=== PATIENT | male | born 1960 | race Caucasian/White ===

== ENCOUNTER 2017-02-14 12:23 | Inpatient (IN) | payer BC ==
--- NOTE | ~2017-02-14 | OP ---
Record Of Operation [facility] [address] [place]. [address] NAME: NIMO SANCHEZ JR : 60 STATUS : DIS IN PAT#: [id number] AGE: 56 ADM/REG DATE : 02/14/17 MR#: [id number] REPORT SERV DATE: 03/02/17 DICTATED BY: LO PARDO III DATE: 03/02/17 REPORT STATUS : Draft TRANSCRIBED BY: MODL DATE: 03/02/17 DATE OF PROCEDURE: 02/14/2017 PROCEDURAL PIPE FITTER SUPERVISOR: Lo Pardo M.D., FORMERLY [facility], [facility]. INDICATIONS: Mr. Nimo Sanchez Jr., is a 56-year-old white male with three other risk factors for coronary atherosclerotic disease (i.e., obesity, hyperlipoproteinemia, hypertension) and no prior cardiac history; who presented with an acute inferior ST segment elevation myocardial infarction-acute coronary syndrome, incomplete left bundle-branch block. The patient's 12-lead electrocardiogram was positive by Sgarbossa criteria. The patient was admitted for emergent cardiac catheterization and consideration of revascularization. Options, potential risks and benefits of the procedure were discussed with the patient. The patient accepted these risks and wished to proceed. PROCEDURE DESCRIPTION: 1. Left heart catheterization. 2. Left ventriculogram. 3. Left and right coronary angiograms. 4. Percutaneous transluminal coronary angioplasty with implantation of a 3.0 mm x 16 mm [employer] Synergy EES in the distal portion of the right coronary artery. 5. Limited right iliofemoral angiogram. CONTRAST: Iopamidol 170 mL. MEDICATIONS: 1. Midazolam 2 mg intravenously, in divided doses. 2. Sublimaze 100 mcg intravenously, in divided doses. 3. Heparin 1000 units intravenously (for a total of 4000 units intravenously). 4. Bivalirudin with a loading dose of 0.75 mg/kg intravenously, followed by a standard intravenous infusion at 1.75 mg/kg per hour. 5. Nitroglycerin 200 mcg intracoronary. 6. Ticagrelor 180 mg orally. EQUIPMENT: 1. 4-[place] Cook micropuncture with stiffened cannula (RFA). 2. 0.035-inch PTFE coated, 150 cm, 3 mm J Measyald guidewire. 3. 6-[place], 10 cm Terumo pinnacle sheath. 4. 6-[place], 100 cm #4 curve left coronary artery Nicole catheter. 5. 6-[place], 100 cm Bautista 3D right coronary artery catheter. 6. 6-[place] Hockey Stick Cordis Orma Brite-Tip guiding catheter. 7. 0.014-inch Hi-Torque floppy, 190 cm, extra-support Palacio whisper steerable guidewire. 8. 2.5 mm x 15 mm [employer] Emerge MR balloon dilatation catheter (14 atmospheres for a duration of 30 seconds). 9. 3.0 mm x 16 mm [employer] Synergy MR stent deployment system (18 atmospheres for a duration of 60 seconds). 10.6-[place], 110 cm pigtail-145 catheter (38 mL at 13 mL per second). Record Of Operation [address] [place]. [address] NAME: NIMO SANCHEZ JR : 60 STATUS : DIS IN PAT#: [id number] AGE: 56 ADM/REG DATE : 02/14/17 MR#: [id number] REPORT SERV DATE: 03/02/17 DICTATED BY: LO PARDO III DATE: 03/02/17 REPORT STATUS : Draft TRANSCRIBED BY: MARY CARMEN DATE: 03/02/17 11.6-[place] Palacio Perclose ProGlide vascular closure device. COMPLICATIONS: None. RADIATION DOSE: 887 mGy. ESTIMATED BLOOD LOSS: 20 mL. HEMODYNAMICS DATA: Prior to left ventriculography, the central aortic pressure was 130/87 mmHg. The left ventricular pressure was 135/10 mmHg (post a-wave). There was no significant mggu-za-nhqz aortic valve gradient on pullback from the left ventricle to the central aorta. ANGIOGRAPHIC DATA: Single-plane 30-DUBON left ventriculography demonstrated that the left ventricle was moderately enlarged. There was anterobasal hypokinesis, anterolateral hypokinesis, apical hypokinesis, diaphragmatic profound hypokinesis, and posterobasal profound hypokinesis. Global left ventricular systolic function was severely reduced. There was no mitral regurgitation. The left main coronary artery was a large caliber, long, irregular vessel. There was an eccentric 50% stenosis involving the ostium of the left main coronary artery. There was a 25% stenosis involving the distal portion of the left main coronary artery. The left main coronary artery bifurcated into a medium caliber left anterior descending and a small-to- medium caliber, nondominant left circumflex coronary arteries. The left anterior descending coronary artery gave rise to three major septal perforators, large caliber first diagonal branch, right ventricular branch, and a small caliber second diagonal branch, before supplying the left ventricular apex. There were irregularities of the mid-portion of the left anterior descending coronary artery. The left anterior descending coronary artery was free of angiographically significant obstructive epicardial coronary artery disease. The left circumflex coronary artery was a bnggk-wz-rerfov caliber, nondominant vessel. The left circumflex coronary artery gave rise to one medium caliber obtuse marginal branch and no posterolateral segment branches. The left circumflex coronary artery was diffusely irregular. The left circumflex coronary artery was free of angiographically significant obstructive epicardial coronary artery disease. The right coronary artery was a tuvocm-nv-oqnzk caliber, dominant vessel. The right coronary artery gave rise to a conus branch, sinoatrial branch, plfol-dh-usqbmf caliber first right ventricular branch, medium caliber second right ventricular branch, small caliber acute marginal branch, large caliber posterior descending coronary artery, small caliber first posterior left ventricular branch, medium caliber second posterior left ventricular branch, and a small caliber third posterior left ventricular branch. The right coronary artery was diffusely irregular. There was a radiolucent, irregular, eccentric subtotal occlusion of the distal portion of the right coronary artery just proximal to the origin of the posterior descending coronary artery. There was SHARAD grade 2 perfusion of the Record Of Operation [address] [address] NAME: NIMO SANCHEZ JR : 60 STATUS : DIS IN PAT#: [id number] AGE: 56 ADM/REG DATE : 02/14/17 MR#: [id number] REPORT SERV DATE: 03/02/17 DICTATED BY: LO PARDO III DATE: 03/02/17 REPORT STATUS : Draft TRANSCRIBED BY: MODL DATE: 03/02/17 distal vessel. Following balloon dilatation and implantation of a 3.0 mm x 16 mm [employer] Synergy EES in the distal portion of the right coronary artery, selective injections of the right coronary artery demonstrated a reduction in the stenosis to approximately 0%. There was no intraluminal radiolucency or irregularity. There was SHARAD grade 3 perfusion of the distal vessel. Limited right iliofemoral angiography demonstrated irregularities of the distal external iliac and common femoral arteries. The sheath insertion site was located in the common femoral artery. PATIENT DISPOSITION: Coronary Care Unit. CONCLUSIONS: 1. Anterobasal hypokinesis, anterolateral hypokinesis, apical hypokinesis, diaphragmatic profound hypokinesis, and posterobasal profound hypokinesis, with a severe reduction in global left ventricular systolic function. 2. Normal left ventricular end-diastolic pressure. 3. Angiographically significant left main and one-vessel coronary artery disease, involving the distal portion of the right coronary artery. 4. Right dominant coronary anatomy. 5. Successful percutaneous transluminal coronary angioplasty with implantation of a 3.0 mm x 16 mm [employer] Synergy EES in the distal portion of the right coronary artery, with reduction in the stenosis to approximately 0% and SHARAD grade 3 perfusion of the distal vessel. RECOMMENDATION: Aspirin for life, ticagrelor for at least one year, carvedilol, SOHEILA inhibitor, high-intensity atorvastatin, echocardiogram to document left ventricular ejection fraction, consider aldosterone antagonists, consider LifeVest and cardiac rehabilitation program. LH/MODL Lo Pardo III, M.D., [place], [facility] / [id number] CC: Lo Pardo III, M.D., [facility] Josiah Wright M.D.
--- NOTE | ~2017-02-14 | DS ---
Discharge Summary [facility] [address] [place]. [address] NAME: NIMO SANCHEZ JR : 60 STATUS : DIS IN PAT#: [id number] AGE: 56 ADM/REG DATE : 02/14/17 MR#: [id number] REPORT SERV DATE: 02/27/17 DICTATED BY: LO PARDO III DATE: 02/26/17 REPORT STATUS : Draft TRANSCRIBED BY: MARY CARMEN DATE: 02/26/17 Data Collection from hospitalization DISCHARGE DIAGNOSIS(ES): 1. Acute inferior ST-elevation myocardial infarction - acute coronary syndrome. 2. Coronary artery disease. 3. Hypertension. 4. Hyperlipidemia. 5. Type 2 diabetes. 6. Obesity. 7. Obstructive sleep apnea. 8. Chronic anxiety. CONSULTATIONS: None. PROCEDURES PERFORMED: Cardiac catheterization dated 02/14/2017. MEDICATIONS: Aspirin 81 mg at bedtime; Lipitor as instructed; Coreg 6.25 mg twice a day; Nexium 20 mg daily as needed; Centrum one tablet every morning; Aleve 440 mg daily as needed; niacin TR 2000 mg at bedtime; nitroglycerin 0.4 mg sublingually as needed; Altace as instructed; Appling nasal spray one spray nasally every morning; Aldactone 25 mg daily; Brilinta 90 mg twice a day; and ketoconazole one application topically on Wednesdays and Saturdays. CONDITION AT DISCHARGE: Stable. DISPOSITION: The patient was discharged home on a low-sodium, low-cholesterol diet with activities as instructed. He would follow up with ca, 03/18/2017. HOSPITAL COURSE: This is a 56-year-old man from [place], [place], who presented to the [facility] for evaluation and treatment of an acute inferior ST-segment elevation myocardial infarction - acute coronary syndrome. He had been in his usual state of health until approximately one week prior to this admission. At that time, he developed the onset of dull substernal chest pain radiating to the upper extremities. The chest pains have lasted up to two hours in duration. The patient's chest pains have been accompanied by diaphoresis and nausea. He denied dyspnea or vomiting. The chest pains were precipitated by exertion and oral intake. The pain was partially relieved by antacids. He denied trying sublingual nitroglycerin and a heating pad. He was subsequently seen in the [facility] Emergency Room. A 12-lead electrocardiogram demonstrated sinus rhythm at a rate of 76 beats per minute, complete left bundle-branch block, and evidence of inferior ST-segment elevation myocardial infarction. The patient was treated with aspirin, intravenous heparin, and nitrates. It was felt that he would need to undergo a cardiac catheterization and consideration of revascularization. He was admitted to the hospital at this time for further evaluation and treatment. Upon admission, he was taken to the cardiac environmental laboratory technician where he underwent the above-mentioned procedure. The following day, he had no chest pain, palpitations, or dyspnea. He was in a sinus rhythm with occasional PVCs. Hemoglobin A1c was going to be checked. It was felt Discharge Summary [id number] [place]. [address] NAME: NIMO SANCHEZ JR : 60 STATUS : DIS IN PAT#: [id number] AGE: 56 ADM/REG DATE : 02/14/17 MR#: [id number] REPORT SERV DATE: 02/27/17 DICTATED BY: LO PARDO III DATE: 02/26/17 REPORT STATUS : Draft TRANSCRIBED BY: MARY CARMEN DATE: 02/26/17 that he would benefit from the cardiac rehab program. He was transferred to telemetry. On 02/16/2017, he had no dyspnea, palpitations, or chest pain. He remained in a sinus rhythm. Discharge planning was performed. A LifeVest was being considered. Discharge planning continued. On 02/17/2017, he was alert and cooperative. He had good pain control. Discharge instructions were given. Due to his improved and stable condition, he was discharged home with the above-stated instructions. Information collected by: Jennifer Waite I submit the above information as my discharge summary. JASPER/MARY CARMEN Lo Pardo III, M.D., [place], [facility] / [id number] CC: Lo Pardo III, M.D., [place] [facility] Josiah Wright M.D.
--- NOTE | ~2017-02-14 | HP ---
History And Physical [address] [place]. [address] NAME: NIMO SANCHEZ JR : 60 STATUS : ADM Lucy PAT#: [id number] AGE: 56 ADM/REG DATE : 02/14/17 MR#: [id number] REPORT SERV DATE: 02/15/17 DICTATED BY: LO PARDO III DATE: 02/15/17 REPORT STATUS : Draft TRANSCRIBED BY: MARY CARMEN DATE: 02/15/17 DATE OF ADMISSION: 02/14/2017 HISTORY OF PRESENT ILLNESS: Mr. Nimo Sanchez Jr is a 56-year-old white male from [place], [place], admitted to [facility] for evaluation and treatment of an acute inferior ST-segment elevation myocardial infarction-acute coronary syndrome. The patient had been in his usual state of health until approximately one week prior to this admission. At that time, the patient noted the onset of dull substernal chest pains radiating to his upper extremities. The patient's chest pains have lasted up to two hours in duration. The patient's chest pains have been accompanied by diaphoresis and nausea. The patient denied any associated dyspnea or vomiting. The patient's chest pains were precipitated by exertion and oral intake. The patient denied relation to emotional upset, respiration and positional change. The patient's chest pains were partially relieved by antacids. The patient denied trying sublingual nitroglycerin and a heating pad. The patient has no history of migraine headaches or symptoms suggestive of Raynaud's phenomenon. The patient denied chest pain at rest. The patient was awoken with chest pain on one occasion. Over the last week, the patient has noted an increase in the frequency, intensity, and duration of his chest pains. The patient did well until the day of admission. At that time, the patient had the onset of sustained dull substernal chest pains radiating to the upper extremities. The patient was subsequently seen in the [facility] Emergency Room. A 12-lead electrocardiogram demonstrated sinus rhythm at a rate of 76 beats per minute, complete left bundle-branch block, and evidence of an inferior ST-segment elevation myocardial infarction. The patient was treated with aspirin, intravenous heparin, and nitrates. The patient was referred for emergent cardiac catheterization and consideration of revascularization. The patient complained of dyspnea on exertion, but could not quantitate his functional limitation. The patient denied pedal edema, sacral edema, palpitations, syncope, hip claudication, and lower extremity claudication. The patient has no history of rheumatic fever, cardiac murmur. The patient's documented coronary artery disease risk factors include obesity, hyperlipoproteinemia, and hypertension. PAST MEDICAL HISTORY: 1. Obesity. 2. Hyperlipoproteinemia. 3. Hypertension. 4. Obstructive sleep apnea, CPAP compliant. 5. Chronic anxiety. 6. Nephrolithiasis. OPERATIVE PROCEDURES: Status post repair of an esophageal stricture at six months of age. ALLERGIES: CODEINE. MEDICATIONS: 1. Aspirin 81 mg p.o. at bedtime. 2. Anna-Orondo one to two tablets p.o. b.i.d., p.r.n. History And Physical [address] [address] NAME: NIMO SANCHEZ JR : 60 STATUS : ADM Lucy PAT#: [id number] AGE: 56 ADM/REG DATE : 02/14/17 MR#: [id number] REPORT SERV DATE: 02/15/17 DICTATED BY: LO PARDO III DATE: 02/15/17 REPORT STATUS : Draft TRANSCRIBED BY: MARY CARMEN DATE: 02/15/17 3. Esomeprazole 20 mg p.o. p.r.n. 4. Irbesartan/hydrochlorothiazide 150/6.25 mg p.o. q.a.m. 5. Multivitamin with minerals one p.o. daily. 6. Naproxen 440 mg p.o. p.r.n. 7. Nicotinic acid SR 2000 mg p.o. at bedtime. 8. Simvastatin 40 mg p.o. at bedtime. 9. Geary nasal spray one each nostril q.a.m. 10.Testosterone 1.62% two sprays daily. 11.Ketoconazole shampoo two times per week. FAMILY HISTORY: Positive for myocardial infarction, hypertension, diabetes mellitus, and lung cancer. Negative for stroke, seizures, kidney disease, liver disease, anemia, arthritis, and mental illness. SOCIAL HISTORY: The patient drinks an occasional beer or mixed drink. The patient discontinued chewing tobacco approximately three years prior to this admission. PHYSICAL EXAMINATION: GENERAL: Physical examination demonstrated an alert, obese, older white male, in no acute distress. VITAL SIGNS: Demonstrated a temperature of 98.2 orally, respiratory rate of 13 breaths per minute, and a blood pressure of 105/71 mmHg with a heart rate of 58 beats per minute. SKIN: Warm and dry. There was a well-healed midline supraumbilical abdominal surgical scar. NECK: Supple and nontender. There was full range of motion without appreciable lymphadenopathy or thyromegaly. There was no jugular venous distention at 90 degrees. There were no carotid bruits. BACK: Examination of the back demonstrated no spinal or costovertebral angle tenderness. CHEST: Examination of the chest demonstrated that it was clear to auscultation. There were no crackles, rhonchi, wheezes, or pleural rubs. There was symmetrical expansion of the chest. There was no use of accessory muscles on respiration. CARDIAC: Cardiac examination demonstrated a nonpalpable apical impulse. There was a regular rhythm and rate without murmur, rub, gallop, or mid systolic click. There were no thrills or heaves. ABDOMEN: Examination of the abdomen demonstrated that it was obese, soft, and protuberant. There was no appreciable hepatosplenomegaly or masses. Bowel sounds were intact. There were no abdominal or femoral bruits. BACK: Examination of the extremities demonstrated that they were symmetrical. There was decreased range of motion. There was no cyanosis, clubbing, or edema. Pulses were 2+ and equal at the radial and posterior tibial arteries. The femoral pulses were 1+ and equal. Right dorsalis pedis pulse was trace to nonpalpable and the left dorsalis pedis pulse was 2+. LABORATORY DATA: Serum laboratory studies demonstrated a white blood cell count of 9600, hemoglobin 16.1, hematocrit 45.3, and platelet count was 227,000. The sodium was 139, potassium 3.6, chloride 106, bicarbonate 24, BUN 12, creatinine 1.1, and magnesium level was 2.2. The patient's troponin I level was 5.57. History And Physical [address] [place]. [address] NAME: NIMO SANCHEZ JR : 60 STATUS : ADM Lucy PAT#: [id number] AGE: 56 ADM/REG DATE : 02/14/17 MR#: [id number] REPORT SERV DATE: 02/15/17 DICTATED BY: LO PARDO III DATE: 02/15/17 REPORT STATUS : Draft TRANSCRIBED BY: MARY CARMEN DATE: 02/15/17 ASSESSMENT: Mr. Nimo Sanchez Jr is a 56-year-old, white male with three other risk factors for coronary atherosclerotic disease (i.e. obesity, hyperlipoproteinemia, hypertension) and no prior cardiac history; who presents with an acute inferior ST-segment elevation myocardial infarction-acute coronary syndrome and complete left bundle-branch block. The patient is admitted for emergent cardiac catheterization and consideration of revascularization. Options, potential risks, and benefits of the procedures were discussed with the patient. The patient accepted these risks and wished to proceed. DANIE/MARY CARMEN Lo Padro III, M.D., [place], [facility] / [id number] CC: Lo Pardo III, M.D., [facility] Josiah Wright M.D.
[2017-02-14 11:45] LABS: BASOPHILS 0.2 %; BASOPHILS ABSOLUTE 0.02 10/3/uL (0.0-0.16); EOSINOPHILS 0.3 %; EOSINOPHILS ABSOLUTE 0.03 10/3/uL (0.0-0.53); ER CBC TAT 0 Hrs 05 Mins; HEMATOCRIT 45.3 % (40.0-51.0); HEMOGLOBIN 16.1 g/dL (13.6-17.8); IMMATURE GRANULOCYTES 0.2 %; IMMATURE GRANULOCYTES ABSOLUTE 0.02 10/3/uL (0.0-0.11); LYMPHOCYTES 14.2 %; LYMPHOCYTES ABSOLUTE 1.36 10/3/uL (0.67-4.30); MANUAL DIFF NO %; MEAN CORPUS HGB CONC 35.5 g/dL (32.0-36.0); MEAN CORPUSCULAR HEMOGLOB 33.3 pg (26.0-34.0); MEAN CORPUSCULAR VOLUME 93.8 fL (80-100); MEAN PLATELET VOLUME 10.8 fL (9.2-13.0); MONOCYTES 10.5 %; NEUTROPHILS 74.6 %; NEUTROPHILS ABSOLUTE 7.12 10/3/uL (2.02-8.40); PLATELET COUNT 227 10/3/uL (150-400); RBC DISTRIBUTION WIDTH 11.9 % (12.0-16.0); RED CELL COUNT 4.83 10/6/uL (4.7-6.1); WHITE BLOOD CELLS 9.6 10/3/uL (4.5-10.5)
[2017-02-14 11:52] LABS: INTERNATIONAL NORMAL RATI 1.1 UNITS (-); PARTIAL THROMBO TIME 26.6 SEC (22.5-37.2); PROTIME (NOT ORD) 13.8 SEC (12.0-14.5)
[2017-02-14 12:00] LABS: ALKALINE PHOSPHATASE 72 U/L (45-117); BUN (BLOOD UREA NITROGEN) 12 MG/DL (6-23); CALCIUM, SERUM 9.3 MG/DL (8.5-10.4); CHLORIDE, SERUM 106 MMOL/L (96-112); CO2 (CARBON DIOXIDE) 24 MMOL/L (24-34); CREATININE 1.12 MG/DL (0.70-1.30); DIRECT BILIRUBIN 0.2 MG/DL (0.0-0.4); GFR AFRICAN AMERICAN 85 ML/MIN (>=60); GFR NON AFRICAN AMERICAN 73 ML/MIN (>=60); INDIRECT BILIRUBIN(NOT ORDER) 0.5 MG/DL (0.1-0.9); POTASSIUM, SERUM 3.6 MMOL/L (3.5-5.3); SGOT(AST) 69 U/L (5-40); SGPT(ALT) 47 U/L (5-65); SODIUM, SERUM 139 MMOL/L (135-148); TOTAL BILIRUBIN 0.7 MG/DL (0-1.2); TOTAL PROTEIN 7.5 G/DL (6.0-8.5)
[2017-02-14 12:02] LABS: GLUCOSE, SERUM 144 MG/DL (60-99)
[2017-02-14 12:03] LABS: CHEST PAIN PROFILE TAT 0 Hrs 23 Mins; TROPONIN I 5.57 NG/ML (<0.05)
[~2017-02-14 12:23] MED LIST: ANDROGEL5; ASA5GR PO; AVALIDE1 TA1 PO; CENTRUM TAB1 TAB PO; FLOMAX4 PO; NORCO1 TA1 PO; SIMCOR1 TA2 PO
[2017-02-14] MEDS ORDERED: ANDROGEL1.25 GM TOP (12:42)
[2017-02-14] MEDS ORDERED: AVALIDE1 TA1 PO (12:43)
[2017-02-14] MEDS ORDERED: ZOCOR40 PO (12:43)
[2017-02-14] MEDS ORDERED: NIACIN TR1000 MG PO (12:43)
[2017-02-14] MEDS ORDERED: KETOCONAZOLE SHAMPOO TOP (12:44)
[2017-02-14] MEDS ORDERED: CENTRUM PO (12:44)
[2017-02-14] MEDS ORDERED: ALKA-SELTZER O1 EACH PO (12:45)
[2017-02-14] MEDS ORDERED: ASAB PO (12:45)
[2017-02-14] MEDS ORDERED: NEXIUM20 M1 PO (12:45)
[2017-02-14] MEDS ORDERED: OCEAN NAS (12:46)
[2017-02-14] MEDS ORDERED: ALEVE220 MG PO (12:46)
[2017-02-15 04:52] LABS: BASOPHILS 0.2 %; BASOPHILS ABSOLUTE 0.02 10/3/uL (0.0-0.16); EOSINOPHILS 0.5 %; EOSINOPHILS ABSOLUTE 0.05 10/3/uL (0.0-0.53); HEMOGLOBIN 14.2 g/dL (13.6-17.8); IMMATURE GRANULOCYTES 0.3 %; IMMATURE GRANULOCYTES ABSOLUTE 0.03 10/3/uL (0.0-0.11); LYMPHOCYTES 17.9 %; MEAN CORPUS HGB CONC 35.1 g/dL (32.0-36.0); MEAN CORPUSCULAR HEMOGLOB 33.3 pg (26.0-34.0); MEAN CORPUSCULAR VOLUME 95.1 fL (80-100); MEAN PLATELET VOLUME 11.1 fL (9.2-13.0); MONOCYTES 13.5 %; MONOCYTES ABSOLUTE 1.36 10/3/uL (0.21-1.20); NEUTROPHILS 67.6 %; PLATELET COUNT 216 10/3/uL (150-400); RBC DISTRIBUTION WIDTH 12.2 % (12.0-16.0); RED CELL COUNT 4.26 10/6/uL (4.7-6.1); WHITE BLOOD CELLS 10.1 10/3/uL (4.5-10.5)
[2017-02-15 04:53] LABS: HEMATOCRIT 40.5 % (40.0-51.0); MANUAL DIFF NO %
[2017-02-15 05:18] LABS: BUN (BLOOD UREA NITROGEN) 10 MG/DL (6-23); CALCIUM, SERUM 8.6 MG/DL (8.5-10.4); CHLORIDE, SERUM 106 MMOL/L (96-112); CHOL/HDL RATIO(NOT ORDER) 2.3 (0-5); CHOLESTEROL 128 MG/DL (< 200); CO2 (CARBON DIOXIDE) 25 MMOL/L (24-34); CPK 1756 U/L (0-200); CREATININE 0.98 MG/DL (0.70-1.30); GFR AFRICAN AMERICAN 99 ML/MIN (>=60); GFR NON AFRICAN AMERICAN 86 ML/MIN (>=60); GLUCOSE, SERUM 135 MG/DL (60-99); HDL CHOLESTEROL 55 MG/DL (> 39); LDL CHOLESTEROL 46 MG/DL (< 130); NON-HDL CHOLESTEROL 73 MG/DL (< 160); POTASSIUM, SERUM 3.8 MMOL/L (3.5-5.3); SODIUM, SERUM 138 MMOL/L (135-148); TRIGLYCERIDE 138 MG/DL (< 150)
[2017-02-15 05:20] LABS: CKMB INDEX (NOT ORD) 4.4
[2017-02-15 13:48] LABS: CK-MB 40.3 NG/ML
[2017-02-15 13:49] LABS: CKMB INDEX (NOT ORD) 3.5
[2017-02-15 20:18] LABS: CK-MB 19.8 NG/ML; CKMB INDEX (NOT ORD) 2.3
[2017-02-16 06:49] LABS: CK-MB 9.9 NG/ML; CREATININE 1.1 MG/DL (0.70-1.30)
[2017-02-16 06:54] LABS: CKMB INDEX (NOT ORD) 1.6; TROPONIN I 21.6 NG/ML (<0.05)
[2017-02-17] MEDS ORDERED: LIPITOR40 (10:04)
[2017-02-17] MEDS ORDERED: COREG6 PO (10:09)
[2017-02-17] MEDS ORDERED: ALTA5 (10:10)
[2017-02-17] MEDS ORDERED: SPIRO25 PO (10:11)
[2017-02-17] MEDS ORDERED: BRILINTA90 MG PO (10:12)
[2017-02-17] MEDS ORDERED: NTG150 SL (10:15)
== END 2017-02-17 15:49 | disposition home or self-care (01) | DRG 247 ==
LOC: ER 12:23 → CDU1 13:16 → CDU2 14:02 → SDC/OF 15:57 → CCU 16:47 → 7NO 02-15 18:36
PROVIDERS: Internal Medicine Cardiovascular Disease; Nurse Practitioner
PROC: 027035Z Dilation of Coronary Artery, One Artery with Two Drug-eluting Intraluminal Devices, Percutaneous Approach (ICD-10-PCS; principal; 2017-02-14)
PROC: 4A023N7 Measurement of Cardiac Sampling and Pressure, Left Heart, Percutaneous Approach (ICD-10-PCS; 2017-02-14)
PROC: B2111ZZ Fluoroscopy of Multiple Coronary Arteries using Low Osmolar Contrast (ICD-10-PCS; 2017-02-14)
PROC: B2151ZZ Fluoroscopy of Left Heart using Low Osmolar Contrast (ICD-10-PCS; 2017-02-14)
DX: I21.19 ST elevation (STEMI) myocardial infarction involving other coronary artery of inferior wall (principal); E11.65 Type 2 diabetes mellitus with hyperglycemia; I10 Essential (primary) hypertension; I25.10 Atherosclerotic heart disease of native coronary artery without angina pectoris; E66.9 Obesity, unspecified; E78.5 Hyperlipidemia, unspecified; I44.7 Left bundle-branch block, unspecified; Z68.36 Body mass index [BMI] 36.0-36.9, adult; Z87.442 Personal history of urinary calculi; Z79.82 Long term (current) use of aspirin; Z82.49 Family history of ischemic heart disease and other diseases of the circulatory system; Z83.3 Family history of diabetes mellitus; Z81.8 Family history of other mental and behavioral disorders; Z87.891 Personal history of nicotine dependence
CPT/HCPCS: 71010; 80048; 80061; 80076; 82550; 82553; 82565; 83036; 83690; 83735; 84484; 85025; 85610; 85730; 93005; 93458; 96365; 99291; A9270-GY; C1725; C1760; C1769; C1874; C1887; C8929; C9606; J0583; J2250; J3010; Q9957; Q9967